=== PATIENT | female | born 1965 | race African-American/Black ===

== ENCOUNTER 2021-04-21 07:38 | Emergency (ER) | payer OTHER ==
[~2021-04-21] VITALS: Ht 132.1 cm; Wt 57.0 kg
[2021-04-21 07:54] VITALS: BP 123/68
[2021-04-21 08:49] LABS: CLARITY URINE CLEAR (CLEAR); COLOR URINE YELLOW (YELLOW); KETONES URINE NEGATIVE (NEGATIVE); LEUKOCYTE ESTERASE URINE TRACE (NEGATIVE); NITRITE URINE NEGATIVE (NEGATIVE); OCCULT BLOOD URINE TRACE (NEGATIVE); PROTEIN URINE NEGATIVE (NEGATIVE); SPECIFIC GRAVITY URINE 1.006 (1.005-1.030); UROBILINOGEN URINE 0.2 E.U./dL (0.2-1.0)
[2021-04-21] MEDS ORDERED: FLUC150T5 MT (09:20)
[2021-04-21] MEDS ORDERED: METR-167 MT (09:20)
[2021-04-21] MEDS ORDERED: POLY10DR RIGHTEYE (09:28)
== END 2021-04-21 09:38 | disposition home or self-care (01) ==
LOC: ER 07:38
DX: N76.0 Acute vaginitis (principal); B37.9 Candidiasis, unspecified; Z88.6 Allergy status to analgesic agent
CPT/HCPCS: 81003; 87210; 99283